=== PATIENT | female | born 1950 | race Caucasian/White ===

== ENCOUNTER 2016-12-12 19:08 | Emergency (ER) | payer MEDICARE ==
[~2016-12-12 19:08] MED LIST: GLIPIZIDE5 MG PO; GLUCOPHAGE1000 MG PO; LEVAQUIN500 MG PO; METOPROLOL TART25 MG PO; ZOCOR5 MG PO
== END 2016-12-12 20:40 | disposition home or self-care (01) ==
LOC: ER 19:08
DX: J32.9 Chronic sinusitis, unspecified (principal); R51 Headache; Z86.73 Personal history of transient ischemic attack (TIA), and cerebral infarction without residual deficits; Z98.51 Tubal ligation status; Z79.899 Other long term (current) drug therapy; Z79.82 Long term (current) use of aspirin; Z88.6 Allergy status to analgesic agent; Z88.8 Allergy status to other drugs, medicaments and biological substances
CPT/HCPCS: 70450; 99283; 99284-25